=== PATIENT | male | born 1985 | race African-American/Black ===

== ENCOUNTER 2019-10-21 00:05 | Emergency (ER) | payer SELFPAY ==
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
[2019-10-21] MEDS ORDERED: EPINEPHrine 1 MG/10 ML Abboject SYRINGE ONE (10:27)
== END 2019-10-21 00:17 | disposition expired ==
LOC: ERS 00:05 → EEVIPCON 00:05 → ERS 00:17
DX: S21.102A Unspecified open wound of left front wall of thorax without penetration into thoracic cavity, initial encounter (principal); W34.00XA Accidental discharge from unspecified firearms or gun, initial encounter
CPT/HCPCS: 32551; 96374; G0390; J0171